=== PATIENT | female | born 1965 | race Caucasian/White ===

== ENCOUNTER → 2016-08-18 | Outpatient (CLI) | payer OTHER ==
--- NOTE | 2016-08-18 10:14 | KCIC ---
PROCEDURE Bilateral digital mammogram with CAD HISTORY Routine screening TECHNIQUE Bilateral digital routine views were obtained with computer-aided detection. COMPARISON July 19, 2015 FINDINGS Density D: Predominantly dense ffibroglandular tissue. There are small asymmetric tissue densities bilaterally. There is no suspicious calcifications or areas of architectural distortion. IMPRESSION Small asymmetric tissue densities bilaterally. Recommend the patient return for bilateral breast ultrasound. The patient and the clinical service will contacted by the Radiology staff for further instructions. The breast tissue is dense. Mammography is less sensitive for abnormalities in areas of dense tissue. This study was interpreted with the benefit of Computerized Aided Detection (CAD). Mammography is not 100% sensitive in detecting breast cancer. Therefore, a self breast exam and a clinical breast exam are very important. A negative mammogram does not negate a clinically suspicious finding and should not result in a delay in biopsying a clinically suspicious abnormality. BI-RADS category 0: Incomplete. Electronically signed by: Jimenez Pedraza MD (Aug 18, 2016 10:12:30)
== END | disposition home or self-care (01) ==
LOC: KCIC MAMMO 08:50
DX: Z12.31 Encounter for screening mammogram for malignant neoplasm of breast (principal)
CPT/HCPCS: G0202; 77067